=== PATIENT | male | born 1995 | race Two or more races ===

== ENCOUNTER 2017-12-13 20:23 | Emergency (ER) | payer BC, OTHER ==
[~2017-12-13] VITALS: Ht 172.7 cm; Wt 90.7 kg
[2017-12-13 21:10] VITALS: BP 131/77
[2017-12-13] MEDS ORDERED: cefTRIAXone SOD 1,000 MG VL IM ONE (22:15)
[2017-12-13] MEDS ORDERED: ERYTHROMY OPTH OINT 5mg/gm 1gm OP ONE (22:15)
[2017-12-13] MEDS ORDERED: AZITHROMYCIN 250 MG TAB PO ONE (22:15)
== END 2017-12-13 22:42 | disposition home or self-care (01) ==
LOC: ER 20:23
DX: A54.31 Gonococcal conjunctivitis (principal)
CPT/HCPCS: 96372; 99283; J0696

== ENCOUNTER 2024-02-14 10:10 | Emergency (ER) | payer BC, OTHER ==
[~2024-02-14] VITALS: Ht 172.7 cm; Wt 117.6 kg
[2024-02-14] MEDS ORDERED: METH4PAK PO (11:19)
[2024-02-14 11:34] VITALS: BP 142/74; PULSE 100; RESP 16; TEMP 97.9; O2SAT 95
== END 2024-02-14 11:36 | disposition home or self-care (01) ==
LOC: ER 10:10
DX: G51.0 Bell's palsy (principal); Z90.49 Acquired absence of other specified parts of digestive tract
CPT/HCPCS: 70450